=== PATIENT | female | born 1955 | race Native Hawaiian/Other Pacific Islander ===

== ENCOUNTER 2018-12-16 09:10 | Outpatient (CLI) | payer BC | END 2018-12-16 19:12 | disposition home or self-care (01) | LOC: CT 09:10 | DX: R10.13 Epigastric pain (principal); R19.7 Diarrhea, unspecified; K21.9 Gastro-esophageal reflux disease without esophagitis; R11.2 Nausea with vomiting, unspecified | CPT/HCPCS: 36415; 82565; 84520; Q9963 ==

== ENCOUNTER 2019-02-16 07:58 | Outpatient (CLI) | payer BC | END 2019-02-16 23:39 | disposition home or self-care (01) | LOC: MRI 07:58 | DX: M25.511 Pain in right shoulder (principal) ==